=== PATIENT | male | born 1945 | race Caucasian/White ===

== ENCOUNTER 2018-10-04 19:12 | Emergency (ER) | payer MEDICARE, BC ==
[~2018-10-04] VITALS: Ht 182.9 cm; Wt 117.0 kg
[~2018-10-04 19:12] MED LIST: ASPI-1071 PO; ATOR10TA PO; CLOP75TA35 PO; DOCU100C40 PO; DULO-31 PO; ISOS30TA6 PO; LISI-600 PO; LORA10TA65 PO; METO25TA6 PO; [UNRECOGNIZED DRUG - CODE] EACHEYE
--- NOTE | 2018-10-04 19:23 | NUR ---
MD OGDEN AWARE OF TRAUMA CRITERIA
[2018-10-04] MEDS ORDERED: TETanus/Pertussis (Acell)/Diphther VAC/PF (Tdap-Adult) 0.5ml syringe IM ONE (19:50)
[2018-10-04] MEDS ORDERED: normal saline 1000ML IV soln IVB ONE (19:50)
--- NOTE | 2018-10-04 19:58 | NUR ---
PT BACK FROM CT
--- NOTE | 2018-10-04 20:01 | NUR ---
XRAY AT BEDSIDE
[2018-10-04 20:46] LABS: BASOPHILS % (AUTO) 0.3 % (0-1); EOSINOPHILS # (AUTO) 0.6 X10'3 (0-0.9); EOSINOPHILS % (AUTO) 4.3 % (0-6); HEMATOCRIT 39.1 % (42.0-52.0); LYMPHOCYTES # (AUTO) 1.2 X10'3 (1.1-4.8); LYMPHOCYTES % (AUTO) 8.1 % (21-51); MEAN CORPUSCULAR HEMOGLOBIN 29.6 PG (27.0-31.0); MEAN CORPUSCULAR HGB CONC 33.3 % (33.0-36.5); MEAN PLATELET VOLUME 8.8 FL (7.4-10.4); MONOCYTES # (AUTO) 1.3 X10'3 (0-0.9); NEUTROPHILS # (AUTO) 11.2 X10'3 (1.8-7.7); NEUTROPHILS % (AUTO) 78.3 % (42-75); PLATELET COUNT 206 X10'3 (140-440); RED CELL DISTRIBUTION WIDTH 15.5 % (11.5-14.5); WHITE BLOOD COUNT 14.3 X10'3 (4.5-11.0)
[2018-10-04 20:56] LABS: PROTHROMBIN TIME 10.4 SECONDS (9.0-12.0)
[2018-10-04 20:58] VITALS: BP 136/81
[2018-10-04 21:04] LABS: CLARITY,URINE CLEAR (Clear); COLOR,URINE YELLOW (Yellow); GLUCOSE, URINE NEGATIVE (Neg); KETONES,URINE NEGATIVE (Neg); LEUKOCYTE ESTERASE ,URINE NEGATIVE (Neg); NITRITES, URINE NEGATIVE (Neg); OCCULT BLOOD,URINE NEGATIVE (Neg); PROTEIN,URINE NEGATIVE (Neg)
[2018-10-04 21:05] LABS: UA COLLECTION TYPE CLN CATCH MIDSTREAM
[2018-10-04 21:09] LABS: ALANINE AMINOTRANSFERASE 12 U/L (12-78); ALBUMIN 3.2 G/DL (3.4-5.0); ALBUMIN/GLOBULIN RATIO 0.9 (1.1-1.5); ALKALINE PHOSPHATASE 102 IU/L (46-116); ANION GAP 7 (8-16); ASPARTATE AMINO TRANSFERASE 9 U/L (10-37); BILIRUBIN,TOTAL 0.5 MG/DL (0.1-1.0); BLOOD UREA NITROGEN 19 MG/DL (7-18); BUN/CREATININE RATIO 18.8 (5.4-32.0); CALCIUM 8.4 MG/DL (8.5-10.1); CHLORIDE 104 MMOL/L (99-107); CREATININE 1.01 MG/DL (0.60-1.10); GLUCOSE 116 MG/DL (70-104); POTASSIUM 4.1 MMOL/L (3.5-5.1); SODIUM 139 MMOL/L (135-145); TOTAL CARBON DIOXIDE 27.9 MMOL/L (24-32); TOTAL PROTEIN 6.9 G/DL (6.4-8.2); eGFR 72 ML/MIN
[2018-10-04 21:13] LABS: URINE AMPHETAMINE SCREEN NEGATIVE (Neg); URINE BARBITUATE SCREEN NEGATIVE (Neg); URINE BENZODIAZEPINES SCREEN NEGATIVE (Neg); URINE CANNABINOID SCREEN NEGATIVE (Neg); URINE COCAINE SCREEN NEGATIVE (Neg); URINE METHADONE SCREEN NEGATIVE (Neg); URINE OPIATE SCREEN NEGATIVE (Neg); URINE PHENCYCLIDINE SCREEN NEGATIVE (Neg)
[2018-10-04 21:13] LABS: ETHANOL < 0.010 GM/DL (0.0-0.010)
[2018-10-04] MEDS ORDERED: NYSPWD TP (21:21)
== END 2018-10-04 22:39 ==
LOC: ER 19:12
DX: S60.222A Contusion of left hand, initial encounter (principal); S60.221A Contusion of right hand, initial encounter; S00.81XA Abrasion of other part of head, initial encounter; S60.417A Abrasion of left little finger, initial encounter; M25.552 Pain in left hip; I25.10 Atherosclerotic heart disease of native coronary artery without angina pectoris; E78.00 Pure hypercholesterolemia, unspecified; I10 Essential (primary) hypertension; Z91.011 Allergy to milk products; Z79.82 Long term (current) use of aspirin; Z79.899 Other long term (current) drug therapy; W19.XXXA Unspecified fall, initial encounter; Y93.89 Activity, other specified; Y92.89 Other specified places as the place of occurrence of the external cause; Y99.8 Other external cause status
CPT/HCPCS: 36415; 70450; 71045; 72125; 73502; 80053; 80305; 80320; 81003; 83605; 84443; 84484; 85025; 85610; 87040; 90471; 90715; 93005; 99284; J7030; P9612

== ENCOUNTER 2019-03-18 10:44 | Day surgery (SDC) | payer MEDICARE, BC ==
[2019-03-17 11:04] LABS: BASOPHILS # (AUTO) 0.1 X10'3 (0-0.2); BASOPHILS % (AUTO) 0.5 % (0-1); EOSINOPHILS # (AUTO) 0.5 X10'3 (0-0.9); EOSINOPHILS % (AUTO) 4.5 % (0-6); HEMATOCRIT 43.5 % (42.0-52.0); HEMOGLOBIN 14.2 g/dl (14.0-17.9); LYMPHOCYTES # (AUTO) 1.1 X10'3 (1.1-4.8); LYMPHOCYTES % (AUTO) 10.2 % (21-51); MEAN CORPUSCULAR HEMOGLOBIN 29.7 PG (27.0-31.0); MEAN CORPUSCULAR HGB CONC 32.7 g/dL (33.0-36.5); MEAN CORPUSCULAR VOLUME 90.8 FL (78-98); MEAN PLATELET VOLUME 8.4 FL (7.4-10.4); MONOCYTES # (AUTO) 0.8 X10'3 (0-0.9); MONOCYTES % (AUTO) 7.4 % (2-12); NEUTROPHILS # (AUTO) 8.3 X10'3 (1.8-7.7); NEUTROPHILS % (AUTO) 77.4 % (42-75); PLATELET COUNT 198 X10'3 (140-440); RED BLOOD COUNT 4.79 X10'6 (4.70-6.10); RED CELL DISTRIBUTION WIDTH 16.1 % (11.5-14.5); WHITE BLOOD COUNT 10.7 X10'3 (4.5-11.0)
[2019-03-17 11:12] LABS: ALBUMIN 3.3 G/DL (3.4-5.0); ANION GAP 7 (8-16); BLOOD UREA NITROGEN 24 MG/DL (7-18); BUN/CREATININE RATIO 26.1 (5.4-32.0); CALCIUM 8.8 MG/DL (8.5-10.1); CHLORIDE 106 MMOL/L (99-107); CREATININE 0.92 MG/DL (0.60-1.10); GLUCOSE 144 MG/DL (70-104); POTASSIUM 4.1 MMOL/L (3.5-5.1); SODIUM 140 MMOL/L (135-145); TOTAL CARBON DIOXIDE 27.1 MMOL/L (24-32); eGFR 81 ML/MIN
[2019-03-17 11:15] LABS: PARTIAL THROMBOPLASTIN TIME 27 SECONDS (22-32)
[~2019-03-18] VITALS: Ht 177.8 cm; Wt 122.5 kg
[2019-03-18] VITALS (11 sets, daily range): BP systolic 107–154; BP diastolic 59–97
[~2019-03-18 10:44] MED LIST changes: +NYSPWD TP
[2019-03-18] MEDS ORDERED: normal saline 1,000 ML IV SCH (11:00)
[2019-03-18] MEDS ORDERED: LORazepam 0.5 MG tablet PO PRN (11:00)
[2019-03-18] MEDS ORDERED: diphenhydrAMINE 25mg capsule PO PRN (11:00)
[2019-03-18] MEDS ORDERED: ASPI-1 PO (11:40)
[2019-03-18] MEDS ORDERED: ISOS60TA4 PO (11:41)
[2019-03-18] MEDS ORDERED: METO50TA17 PO (11:42)
[2019-03-18] MEDS ORDERED: TURM538C PO (11:43)
[2019-03-18] MEDS ORDERED: CLOP75TA15 PO (11:43)
[2019-03-18] MEDS ORDERED: LORA10TA7 PO (11:44)
[2019-03-18] MEDS ORDERED: DULO-31 PO (11:45)
[2019-03-18] MEDS ORDERED: SELE5TAB8 (11:46)
[2019-03-18] MEDS ORDERED: CARB1TAB23 PO (11:47)
[2019-03-18] MEDS ORDERED: UBID100C45 PO (11:48)
[2019-03-18] MEDS ORDERED: DONE-46 PO (12:06)
[2019-03-18] MEDS ORDERED: GARL1000 PO (12:07)
[2019-03-18] MEDS ORDERED: CYAN-51 PO (12:08)
[2019-03-18] MEDS ORDERED: FLO0.4C PO (12:10)
[2019-03-18] MEDS ORDERED: OFLO5DRO3 OT (12:10)
[2019-03-18] MEDS ORDERED: OXYB5TAB11 PO (12:11)
[2019-03-18] MEDS ORDERED: MEMA5TAB PO (12:12)
[2019-03-18] MEDS ORDERED: IBUP1CAP11 PO (12:13)
[2019-03-18] MEDS ORDERED: nystatin powder TOP (12:14)
[2019-03-18] MEDS ORDERED: MELA3TAB PO (12:15)
[2019-03-18] MEDS ORDERED: HYDR-4353 PO (12:16)
[2019-03-18] MEDS ORDERED: LOSA25TA96 PO (12:18)
[2019-03-18] MEDS ORDERED: nitroGLYCERIN-Tridil 50MG/D5W 250 ML IV ONE (12:33)
[2019-03-18] MEDS ORDERED: midazolam 2 mg/2 ml injection ONE (12:34)
[2019-03-18] MEDS ORDERED: heparin 1,000unit/ml 10ml vial 10 ML ONE (12:34)
[2019-03-18] MEDS ORDERED: iohexol 350 MG/ML 50ML vial IV ONE (12:34)
[2019-03-18] MEDS ORDERED: LIDOcaine 1% (10mg/ml)w/preservative injection 20ml MDV ONE (12:34)
[2019-03-18] MEDS ORDERED: fentaNYL/PF 50MCG/1 ML 2ML syringe ONE (12:34)
[2019-03-18] MEDS ORDERED: iohexol 350MG/ML 100ml bottle IV ONE ×2 (12:34→14:18)
[2019-03-18] MEDS ORDERED: HYDROcodone/acetaminophen 5mg/325mg tablet PO PRN (15:10)
[2019-03-18] MEDS ORDERED: OXAZEpam 15mg capsule PO PRN (15:10)
== END 2019-03-18 19:55 ==
LOC: SSTAY O 10:44
PROVIDERS: ATTEND Internal Medicine Cardiovascular Disease
DX: I25.10 Atherosclerotic heart disease of native coronary artery without angina pectoris (principal); I50.9 Heart failure, unspecified; I25.82 Chronic total occlusion of coronary artery; Z95.5 Presence of coronary angioplasty implant and graft; I11.0 Hypertensive heart disease with heart failure; E78.5 Hyperlipidemia, unspecified; G47.33 Obstructive sleep apnea (adult) (pediatric); F32.9 Major depressive disorder, single episode, unspecified; E66.9 Obesity, unspecified; Z98.890 Other specified postprocedural states; Z88.8 Allergy status to other drugs, medicaments and biological substances; Z79.899 Other long term (current) drug therapy; Z95.1 Presence of aortocoronary bypass graft
CPT/HCPCS: 36415; 80048; 85025; 85610; 85730; 93005; 93459; 93567; 99152; 99153; A6257; C1769; J1644; J2001; J2250; J3010; J7030; Q0163; Q9967; A4620; J3490